=== PATIENT | female | born 1950 | race Caucasian/White ===

== ENCOUNTER → 2018-04-26 | Outpatient (CLI) | payer MEDICARE, OTHER ==
--- NOTE | 2018-04-26 12:12 | Diagnostic Imaging Report ---
PROCEDURE:MODIFIED BA. SWALLOW INDICATION:Dysphasia; reflux COMPARISON:None. TECHNIQUE:Modified barium swallow was performed in conjunction with speech pathology. A variety of barium and barium coated food items were administered. Fluoroscopy time: 2.1 minutes; Cummulative air kerma: 14.75 mGy. FINDINGS: No evidence of penetration or aspiration. Mild vallecular and base of tongue residue. CONCLUSION: No evidence of penetration or aspiration. Dictated by: Mitchell Lebron M.D. on 04/26/2018 at 12:15 Electronically approved by: Mitchell Lebron M.D. on 04/26/2018 at 12:15
== END ==
LOC: DX 09:55
PROVIDERS: ATTEND Otolaryngology Otolaryngology/Facial Plastic Surgery
DX: K21.9 Gastro-esophageal reflux disease without esophagitis (principal)
CPT/HCPCS: 74230; 92611; G8996; G8997; G8998

== ENCOUNTER → 2019-05-06 | Day surgery (SDC) | payer MEDICARE, OTHER ==
[2019-05-05 15:31] LABS: BASOPHILS # (AUTO) 0.1 (0.0-0.1); BASOPHILS % 0.7 % (0.0-1.0); EOSINOPHILS # (AUTO) 0.2 (0.0-0.4); EOSINOPHILS % 1.5 % (0.0-6.0); HEMATOCRIT 38.3 % (34.2-44.1); HEMOGLOBIN 13.1 g/dL (12.0-16.0); LYMPHOCYTES # (AUTO) 1.6 (1.0-3.2); LYMPHOCYTES % 13.1 % (18.0-39.1); MEAN CORPUSCULAR HEMOGLOBIN 30.4 pg (28-32); MEAN CORPUSCULAR HGB CONC 34.2 g/dL (31-35); MEAN CORPUSCULAR VOLUME 88.9 fL (81-99); MONOCYTES # (AUTO) 0.6 (0.2-0.8); MONOCYTES % 5.2 % (4.4-11.3); NEUTROPHILS # (AUTO) 9.6 (2.1-6.9); NEUTROPHILS % 78.5 % (38.7-80.0); PLATELET COUNT 252 x10e3/uL (140-360); RED BLOOD COUNT 4.31 x10e6/uL (3.6-5.1); RED CELL DISTRIBUTION WIDTH 14.5 % (11.7-14.4)
[2019-05-05 15:41] LABS: INR 0.93
[2019-05-05 15:48] LABS: ALANINE AMINOTRANSFERASE 24 IU/L (0-55); ALBUMIN 3.3 g/dL (3.5-5.0); ALKALINE PHOSPHATASE 111 IU/L (40-150); ANION GAP 14.5 mmol/L (8-16); BLOOD UREA NITROGEN 13 mg/dL (7-26); BUN/CREATININE RATIO 16 (6-25); CALCIUM 10.8 mg/dL (8.4-10.2); CARBON DIOXIDE 19 mmol/L (22-29); CHLORIDE 106 mmol/L (98-107); EST GLOMERULAR FILTRATION RATE > 60 ML/MIN (60-); GLUCOSE 336 mg/dL (74-118); POTASSIUM 3.5 mmol/L (3.5-5.1); SODIUM 136 mmol/L (136-145)
--- NOTE | 2019-05-05 16:50 | Diagnostic Imaging Report ---
EXAM: CHEST 2 VIEWS, PA and lateral DATE: 05/05/2019 Time stamp on exam: 1531 hours INDICATION: Preop renal stone COMPARISON: None FINDINGS: LINES/TUBES: None LUNGS: No consolidations or edema. PLEURA: No effusions or pneumothorax. HEART AND MEDIASTINUM: Normal size and contour. Prominent epicardial fat pads. BONES AND SOFT TISSUES: No acute findings. Degenerative changes of the spine. IMPRESSION: No acute thoracic abnormality. Signed by: Dr. Rios Hess DO on 05/05/2019 4:46 PM
--- NOTE | 2019-05-05 16:59 | Diagnostic Imaging Report ---
EXAM: ABDOMEN-1VIEW ([facility]) DATE: 05/05/2019 2:55 PM INDICATION: Kidney stone ^MD ORDER ^[id number] ^1530 ^PRE ADMIT COMPARISON: None FINDINGS: 3 supine views of the abdomen show normal distribution of air in the small and large bowel. There is a 4 mm calcification projected on the lower pole of the left kidney. No calcifications are projected on the right kidney or either ureter, although small calcifications might be obscured by overlying bowel or bone. Apparent vascular calcifications are seen in the pelvis. No acute bony abnormality. Mild lumbar levoscoliosis. IMPRESSION: 1. A 4 mm calcification is projected on the lower pole left kidney, likely representing an intrarenal calculus. 2. No bowel dilatation or evidence for obstruction. Signed by: Dr. Giorgio Zapata M.D. on 05/05/2019 4:56 PM
[~2019-05-06] MED LIST: ACETAMINOPHEN 1000 MG/100 ML 100 ML IV ONE; ACETAZOLAMIDE250 MG PO; BRIMONIDINE TART5 ML OP; CEFOXITIN 1GM/ D5W 50ML 50 ML IV ONE; DEXAMETHASONE SOD PHOS INJ 4 MG/ML VIAL ONE; DORZOLAMIDE OP; FENTANYL CITRATE/PF 100MCG/2 ML INJ ONE; INSULIN REGULAR, HUMAN 100 UNIT/1 ML 3ML VIAL ONE; IOPAMIDOL 610MG/1ML 300 MG/ML VIAL IV ONE; LIDOCAINE HCL 2% LOCAL INJ 5 ML SDV VIAL INJ ONE; LISINOPRIL10 MG PO; LUMIGAN2.5 M1 OP; MACROBID 100 M100 MG PO; METFORMIN HCL500 MG PO; MIDAZOLAM HCL 2 MG/2 ML VIAL ONE; MYCOPHENOLATE250 MG PO; NEXIUM20 MG PO; ONDANSETRON HCL INJ 2MG/ML 2ML 2 MG/ML VIAL ONE; PREDNISONE5 MG PO; PROPOFOL IV EMULSION 10 MG/ML 20 ML VIAL ONE; SEVOFLURANE INHAL SOLN 250 ML PEN BTL ONE; VIT D PO; ZOFRAN4 MG PO
--- OUTSIDE RECORDS SUMMARY | 2019-05-06 11:07 | XMS REPORT ---
Author Author [facility] Address Unknown Phone Unavailable Care Team Providers Care Board Worker Name Role Phone GEORGE PEREYRA Unavailable Unavailable Chelsey ESPINOZA Unavailable Unavailable Problems This patient has no known problems. Allergies, Adverse Reactions, Alerts This patient has no known allergies or adverse reactions. Medications This patient has no known medications. Results Test Description Test Time Test Comments Text Results Atomic Results Result Comments ABDOMEN-1VIEW ([facility]) 2019-05-05 16:53:00 [place] [address] Patient Name: OTIS HERNADEZ MR #: [id number] : 1950 Age/Sex: 68/F Req #: [id number] Adm Physician: Ordered by: GEORGE PEREYRA MD Report #: [id number] Location: OR Room/Bed: Procedure: [id number] DX/ABDOMEN-1VIEW ([facility]) Exam Date: 05/05/19 Exam Time: 1530 REPORT STATUS: Signed EXAM: ABDOMEN-1VIEW ([facility]) DATE: 05/05/2019 2:55 PM INDICATION: Kidney stone ORDER [id number] 1530 PRE ADMIT COMPARISON: None FINDINGS: 3 supine views of the abdomen show normal distribution of air in the small and large bowel. There is a 4 mm calcification projected on the lower pole of the left kidney. No calcifications are projected on the right kidney or either ureter, although small calcifications might be obscured by overlying bowel or bone. Apparent vascular calcifications are seen in the pelvis. No acute bony abnormality. Mild lumbar levoscoliosis. IMPRESSION: 1. A 4 mm calcification is projected on the lower pole left kidney, likely representing an intrarenal calculus. 2. No bowel dilatation or evidence for obstruction. Signed by: Dr. Binu Mac M.D. on 05/05/2019 4:56 PM Dictated By: BINU MAC MD 55 Transcribed By: DONNELL on 05/05/191655 COPY TO: GEORGE PEREYRA MD CHEST 2 VIEWS 2019-05-05 16:45:00 [place] [address] Patient Name: OTIS HERNADEZ MR #: [id number] : 1950 Age/Sex: 68/F Req #: [id number] Adm Physician: Ordered by: GEORGE PEREYRA MD Report #: [id number] Location: OR Room/Bed: Procedure: [id number] DX/CHEST 2 VIEWS Exam Date: Exam Time: REPORT STATUS: Signed EXAM: CHEST 2 VIEWS, PA and lateral DATE: 05/05/2019 Time stamp on exam: 1531 hours INDICATION: Preop renal stone COMPARISON: None FINDINGS: LINES/TUBES: None LUNGS: No consolidations or edema. PLEURA: No effusions or pneumothorax. HEART AND MEDIASTINUM: Normal size and contour. Prominent epicardial fat pads. BONES AND SOFT TISSUES: No acute findings. Degenerative changes of the spine. IMPRESSION: No acute thoracic abnormality. Signed by: Dr. Denise Hess DO on 05/05/2019 4:46 PM Dictated By: DENISE HESS DO 45 Transcribed By: DONNELL on 05/05/191645 COPY TO: GEORGE PEREYRA MD BA. SWALLOW [place] [address] Patient Name: OTIS HERNADEZ MR #: [id number] : 1950 Age/Sex: 67/F Req #: [id number] Adm Physician: Ordered by: GRACIE ESPINOZA MD Report #: [id number] Location: DX Room/Bed: Procedure: [id number] DX/CAROL BA. SWALLOW Exam Date: 04/26/18 Exam Time: 1100 REPORT STATUS: Signed PROCEDURE: MODIFIED BA. SWALLOW INDICATION: Dysphasia; reflux COMPARISON: None. TECHNIQUE: Modified barium swallow was performed in conjunction with speech pathology. A variety of barium and barium coated food items were administered. Fluoroscopy time: 2.1 minutes; Cummulative air kerma: 14.75 mGy. FINDINGS: No evidence of penetration or aspiration. Mild vallecular and base of tongue residue. CONCLUSION: No evidence of penetration or aspiration. Dictated by: Zach Lebron M.D. on 04/26/2018 at 12:15 Electronically approved by: Zach Lebron M.D. on 04/26/2018 at 12:15 Dictated By: ZACH LEBRON MD 1215 Transcribed By: EDI on 04/26/18 1215 COPY TO: GRACIE ESPINOZA MD
--- OUTSIDE RECORDS SUMMARY | 2019-05-06 11:07 | XMS REPORT | Clinical Summary ---
Author Author [facility] Organization [facility] Address Unknown Phone Unavailable Care Team Providers Care Lockstitch Cup Setter Name Role Phone Marco Antonio Jesus MD PCP Allergies Comments Active Allergy Reactions Severity Noted Date Clindamycin 09/24/2017 Codeine 09/24/2017 Methylprednisolone GI 05/12/2018 Intolerance Naproxen 09/24/2017 Medications End Date Status Medication Sig Dispensed Refills Start Date Active metFORMIN (GLUCOPHAGE) 1 BID 1 500 mg tablet 7 Active lisinopril TK 1 T PO D 1 (PRINIVIL,ZESTRIL) 20 mg 7 tablet Active LUMIGAN 0.01 % ophthalmic 0 drops 7 Active cholecalciferol, vitamin Take 1,000 0 D3, (VITAMIN D3) 1,000 Units by unit tablet mouth daily. Active biotin 1 mg tablet Take 1,000 0 mcg by mouth daily. Active ALPRAZolam (XANAX) 0.25 1 tablet as 1 MG tablet needed. 8 Active cyanocobalamin 1,000 1,000 mcg 0 mcg/mL injection once a week. 8 Active ibuprofen (ADVIL,MOTRIN) Take 800 mg 0 800 MG tablet by mouth as needed for mild pain. Active topiramate (TOPAMAX) 25 Take 1 by 60 tablet 3 MG tablet mouth daily 8 at bedtime for 1 week and then 2 by mouth daily at bedtime thereafter Active multivitamin (THERAGRAN) Take 1 tablet 0 tablet by mouth daily. Active divalproex (DEPAKOTE ER) Take 1 tablet 60 tablet 4 500 MG 24 hr by mouth 8 tabletIndications: daily at Chronic intractable bedtime for 1 headache, unspecified week and then headache type 2 tablets by mouth daily at bedtime thereafter Active esomeprazole (NexIUM) 40 Take 40 mg by 0 MG capsule mouth daily before breakfast. Active predniSONE (DELTASONE) 5 Take 7 mg by 0 mg tablet mouth daily. Active brimonidine-timolol Administer 1 0 (COMBIGAN) 0.2-0.5 % drop to both ophthalmic solution eyes every 12 (twelve) hours. Active brinzolamide (AZOPT) 1 % 1 drop 3 0 ophthalmic suspension (three) times a day. 08/11/2018 Discontinued magnesium oxide (MAG-OX) Take 400 mg 0 400 mg tablet by mouth daily. 08/11/2018 Discontinued prednisoLONE acetate 1 drop 2 0 (PRED FORTE) 1 % (two) times a 8 ophthalmic suspension day. 08/11/2018 Discontinued indomethacin (INDOCIN) 50 Take 1 by 90 capsule 0 MG capsuleIndications: mouth twice 8 Hemicrania continua daily with food for 3 days. If no improvement in headache, increase to one tablet 3 times daily thereafter with food 06/23/2018 LORAZepam (ATIVAN) 1 MG Take 1 tablet 2 tablet 0 tabletIndications: 30-45 minutes 8 Claustrophobia before MRI for claustrophobi a. If needed, repeat 1 05/29/2018 methylPREDNISolone Take as 21 tablet 0 (MEDROL, TAMIR,) 4 mg directed on 8 tablet package with food 05/03/2019 traMADol (ULTRAM) 50 mg Take 1 tablet 9 tablet 0 tablet (50 mg total) 9 by mouth every 8 (eight) hours as needed for moderate pain for up to 3 days. 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 05/12/2018 Cervicalgia 05/12/2018 Stress and adjustment reaction 05/12/2018 Claustrophobia 05/12/2018 Closed fracture of proximal end of right humerus 10/01/2017 Encounters Care Team Description Date Type Specialty Marco Antonio Jesus MD Bilateral calf pain (Primary Dx) 05/05/2019 Transcribe Access Orders Abdoulaye Steel DO Left ureteral stone (Primary Dx) 04/30/2019 Emergency Emergency Medicine Dawit Ham MD Elevated C-reactive protein (CRP) 02/01/2019 Hospital Radiology Encounter Joe Singh MD Fall, initial encounter (Primary Dx); Sprain of left wrist, initial encounter; Contusion of knee, unspecified laterality, initial encounter; Abrasion of face, initial encounter; Injury of head, initial encounter 02/01/2019 Emergency Emergency Medicine Dawit Ham MD Elevated C-reactive protein (CRP) (Primary Dx); Bilateral posterior uveitis 02/01/2019 Transcribe Access Orders Ari Hassan MD Occipital neuralgia, unspecified laterality; Migraine with aura, with intractable migraine, so stated, with status migrainosus 01/28/2019 Hospital Radiology Encounter Ari Hassan MD Occipital neuralgia, unspecified laterality (Primary Dx); Migraine with aura, with intractable migraine, so stated, with status migrainosus 01/25/2019 Transcribe Access Orders Krysta Cha MD 09/14/2018 Telephone Neurology Krysta Cha MD 09/13/2018 Telephone Neurology Krysta Cha MD 09/13/2018 Refill Neurology Rosa Norman MD Bilateral posterior uveitis 09/09/2018 Hospital Radiology Encounter Kirti Wasserman MD Unspecified menopausal and perimenopausal disorder 09/09/2018 Hospital Radiology Encounter Kirti Wasserman MD Screening breast examination 09/09/2018 Hospital Radiology Encounter Rosa Norman MD Bilateral posterior uveitis (Primary Dx) 09/09/2018 Transcribe Access Orders Nathaly Mishra MA 08/12/2018 Telephone Neurology Krysta Cha MD Chronic intractable headache, unspecified headache type (Primary Dx); Nephrolithiasis; Cervicalgia; TMJ syndrome 08/11/2018 Office Visit Neurology Kirti Wasserman MD Unspecified menopausal and perimenopausal disorder (Primary Dx) 08/02/2018 Transcribe Access Kirti Chowdhury MD 07/30/2018 Transcribe Access Orders Kirti Wasserman MD Screening breast examination (Primary Dx) 07/30/2018 Transcribe Access Orders Krysta Cha MD 06/09/2018 Telephone Neurology Krysta Cha MD Hemicrania continujoellen 06/09/2018 Refill Neurology Nathaly Mishra MA 06/04/2018 Telephone Neurology Krysta Cha MD 05/24/2018 Telephone Neurology Krysta Cha MD Hemicrania pedro 05/20/2018 Hospital Radiology Encounter Krysta Cha MD 05/20/2018 Telephone Neurology Jatin Lorenzo MD Throat discomfort 05/17/2018 Hospital Radiology Encounter Krysta Cha MD Hemicrania continua (Primary Dx); TMJ syndrome; Cervicalgia; Stress and adjustment reaction; Claustrophobia 05/12/2018 Office Visit Neurology Jatin Lorenzo MD Throat discomfort (Primary Dx) 05/05/2018 Transcribe Access Orders after 05/05/2018 Family History Medical History Relation Name Comments Diabetes Father Leamon amputation of legs & blind [place] Migraines Father Leamon [place] Diabetes Mother Sylvia legally blind [place] Relation Name Status Comments Father Leamon [place] (Age 71) Mother Sylvia [place]don[place] (Age 70) Social History Date Tobacco Use Types Packs/Day Years Used Never Smoker Smokeless Tobacco: Never Used Alcohol Use Drinks/Week oz/Week Comments No Sex Assigned at Date Recorded Not on file Industry Job Start Date Occupation Not on file Not on file Not on file Travel End Travel History Travel Start No recent travel history available. Last Filed Vital Signs Time Taken Vital Sign Reading 04/30/2019 11:00 PM CDT Blood Pressure 134/64 04/30/2019 11:00 PM CDT Pulse 73 04/30/2019 11:40 PM CDT Temperature 36.6 C (97.9 F) 04/30/2019 11:00 PM CDT Respiratory Rate 18 04/30/2019 11:00 PM CDT Oxygen Saturation 94% - Inhaled Oxygen - Concentration 04/30/2019 8:53 PM CDT Weight 99.8 kg (220 lb) 04/30/2019 8:53 PM CDT Height 162.6 cm (5' 4") 04/30/2019 8:53 PM CDT Body Mass Index 37.76 Plan of Treatment Health Maintenance Due Date Last Done Comments COLONOSCOPY SCREENING 2002 SHINGLES VACCINES (#1) 2002 65+ PNEUMOCOCCAL VACCINE 2017 (1 of 2 - PCV13) INFLUENZA VACCINE 06/23/2019 BREAST CANCER SCREENING 09/09/2020 09/09/2018, 09/09/2017, 08/05/2016, Additional history exists Procedures Comments Procedure Name Priority Date/Time Associated Diagnosis US DUPLEX VENOUS LOWER Routine 05/05/2019 Bilateral calf pain EXTREMITY RIGHT 1:[address] ABDOMEN PELVIS W STAT 04/30/2019 CONTRAST 10:36 PM CDT GRAM STAIN STAT 04/30/2019 9:53 PM CDT URINE CULTURE STAT 04/30/2019 9:53 PM CDT ESTIMATED GFR STAT 04/30/2019 9:15 PM CDT BASIC METABOLIC PANEL STAT 04/30/2019 9:15 PM CDT HC COMPLETE BLD COUNT STAT 04/30/2019 W/AUTO DIFF 9:15 PM CDT URINALYSIS SCREEN AND STAT 04/30/2019 MICROSCOPY, WITH REFLEX 9:15 PM CDT TO CULTURE XR HANDS 3 VW BILATERAL Routine 02/01/2019 Elevated C-reactive 4:24 PM CDT protein (CRP) XR WRIST 3+ VW LEFT STAT 02/01/2019 4:19 PM CDT XR HUMERUS RIGHT STAT 02/01/2019 4:[address] MAXILLOFACIAL WO STAT 02/01/2019 CONTRAST 3:[address] HEAD WO CONTRAST STAT 02/01/2019 3:49 PM CDT SPLINT APPLICATION Routine 02/01/2019 2:39 PM CDT MRI BRAIN W WO CONTRAST Routine 01/28/2019 Occipital neuralgia, 10:56 AM MAXILLOFACIAL PROSTHETICS DENTIST unspecified laterality Migraine with aura, with intractable migraine, so stated, with status migrainosus ESTIMATED GFR Routine 01/28/2019 9:25 AM MAXILLOFACIAL PROSTHETICS DENTIST POC CREATININE Routine 01/28/2019 9:25 AM MAXILLOFACIAL PROSTHETICS DENTIST XR CHEST 2 VW Routine 09/09/2018 Bilateral posterior 12:59 PM CDT uveitis MAMMO BREAST SCREEN Routine 09/09/2018 Screening breast TOMOSYNTHESIS BILATERAL 11:52 AM CDT examination BONE DENSITY Routine 09/09/2018 Unspecified menopausal 11:15 AM CDT and perimenopausal disorder HEPATIC FUNCTION PANEL Routine 08/11/2018 Chronic intractable 2:18 PM CDT headache, unspecified headache type CBC WITH PLATELET AND Routine 08/11/2018 Chronic intractable DIFFERENTIAL 2:18 PM CDT headache, unspecified headache type MRI BRAIN WO CONTRAST Routine 05/20/2018 Hemicrania continua 2:47 PM CDT FL ESOPHAGRAM COMPLETE Routine 05/17/2018 Throat discomfort 8:39 AM CDT after 05/05/2018 Results * Us duplex venous lower extremity (05/05/2019 1:09 PM CDT) Specimen Narrative Performed At EXAMINATION:US DUPLEX VENOUS LOWER EXTREMITY RIGHT [facility] CLINICAL HISTORY:M79.661 Pain in right lower leg, M79.662 Pain in left lower leg, RAJANI CALF PAIN COMPARISON:February 07, 2015. TECHNIQUE:Grayscale, color Doppler, and spectral waveform analysis of the right lower extremity deep venous system was performed. The common femoral, superficial femoral, proximal deep femoral, greater saphenous, and popliteal veins were evaluated. The calf veins were also evaluated. FINDINGS: RIGHT LOWER EXTREMITY Common Femoral Vein: No evidence of deep venous thrombosis. There is good compressibility and response to augmentation. Profunda Femoral Vein: No evidence of deep venous thrombosis. There is good compressibility and response to augmentation. Greater Saphenous Vein: No evidence of deep venous thrombosis. There is good compressibility and response to augmentation. Superficial Femoral Vein: No evidence of deep venous thrombosis. There is good compressibility and response to augmentation. Popliteal Vein: No evidence of deep venous thrombosis. There is good compressibility and response to augmentation. Calf Veins: The calf veins are patent. Encinas's Cyst: No Encinas's Cyst. Other findings: None Left Common Femoral Vein: No evidence of deep venous thrombosis. There is good compressibility and response to augmentation. IMPRESSION: 1.No right lower extremity deep venous thrombosis. [id number] Procedure Note Interface, Radiology Results Incoming - 05/05/2019 1:15 PM CDT EXAMINATION: US DUPLEX VENOUS LOWER EXTREMITY RIGHT CLINICAL HISTORY: M79.661 Pain in right lower leg, M79.662 Pain in left lower leg, RAJANI CALF PAIN COMPARISON: February 07, 2015. TECHNIQUE: Grayscale, color Doppler, and spectral waveform analysis of the right lower extremity deep venous system was performed. The common femoral, superficial femoral, proximal deep femoral, greater saphenous, and popliteal veins were evaluated. The calf veins were also evaluated. FINDINGS: RIGHT LOWER EXTREMITY Common Femoral Vein: No evidence of deep venous thrombosis. There is good compressibility and response to augmentation. Profunda Femoral Vein: No evidence of deep venous thrombosis. There is good compressibility and response to augmentation. Greater Saphenous Vein: No evidence of deep venous thrombosis. There is good compressibility and response to augmentation. Superficial Femoral Vein: No evidence of deep venous thrombosis. There is good compressibility and response to augmentation. Popliteal Vein: No evidence of deep venous thrombosis. There is good compressibility and response to augmentation. Calf Veins: The calf veins are patent. Encinas's Cyst: No Encinas's Cyst. Other findings: None Left Common Femoral Vein: No evidence of deep venous thrombosis. There is good compressibility and response to augmentation. IMPRESSION: 1. No right lower extremity deep venous thrombosis. [id number] Performing Organization Address City/State/Zipcode Phone Number [facility] [address] [place] [address] * CT Abdomen Pelvis W Contrast (04/30/2019 10:36 PM CDT) Specimen Narrative Performed At [facility] INDICATION:left flank paindysuria TECHNIQUE: Multidetector CT of the abdomen and pelvis was performed following intravenous administration of iodinated contrast with multiplanar reformats. CT scans are performed using radiation dose reduction techniques (iterative reconstruction and/or automated exposure control). Technical factors are evaluated and adjusted to ensure appropriate moderation of exposure. Automated dose management technology is applied to adjust radiation exposure while achieving a diagnostic quality image. COMPARISON:CT 07/07/2016. FINDINGS: Lung bases:Dependent subsegmental atelectasis/scarring. Liver:Diffusely decreased attenuation due to fatty infiltration. Gallbladder and biliary:Gallbladder is nonvisualized. Common bile duct is not dilated. Pancreas:Moderately atrophic with fatty replacement. Spleen: Few punctate granulomatous calcifications. Gastrointestinal: Mild sigmoid diverticulosis. Large and small bowel are normal in caliber. Appendix is not visualized. No focal inflammatory changes within the right lower quadrant of the abdomen. Adrenals:Normal. Kidneys and ureters:Presence of a 4 x 4 mm calculus at the left ureterovesical junction. Mild left hydroureteronephrosis. Mild left perinephric stranding. A 4 mm calculus is seen at the inferior pole of the left kidney. 2 mm calculus at the inferior pole the right kidney. Urinary bladder:Left UVJ calculus as above. Lymph nodes:No enlarged lymph nodes in the abdomen or pelvis. Peritoneum:No ascites or free air. Vascular:Mild atherosclerotic changes of the abdominal aorta and major branch vessels. Reproductive organs:Uterus is absent. Unremarkable adnexae. Abdominal wall: Diastasis of rectus abdominis muscles. Broad-based protrusion of abdominal contents at the anterior abdominal wall. Bones:Mild degenerative changes. IMPRESSION: 1. Presence of a 4 x 4 mm calculus at the left ureterovesical junction. Mild left hydroureteronephrosis. A few other bilateral renal calculi are noted. 2. Hepatic steatosis. 3. Mild sigmoid diverticulosis without diverticulitis. [facility]-[id number] Procedure Note [facility], Radiology Results Incoming - 04/30/2019 10:[address] ABDOMEN PELVIS W CONTRAST CLINICAL INDICATION: left flank pain dysuria TECHNIQUE: Multidetector CT of the abdomen and pelvis was performed following intravenous administration of iodinated contrast with multiplanar reformats. CT scans are performed using radiation dose reduction techniques (iterative reconstruction and/or automated exposure control). Technical factors are evaluated and adjusted to ensure appropriate moderation of exposure. Automated dose management technology is applied to adjust radiation exposure while achieving a diagnostic quality image. COMPARISON: CT 07/07/2016. FINDINGS: Lung bases: Dependent subsegmental atelectasis/scarring. Liver: Diffusely decreased attenuation due to fatty infiltration. Gallbladder and biliary: Gallbladder is nonvisualized. Common bile duct is not dilated. Pancreas: Moderately atrophic with fatty replacement. Spleen: Few punctate granulomatous calcifications. Gastrointestinal: Mild sigmoid diverticulosis. Large and small bowel are normal in caliber. Appendix is not visualized. No focal inflammatory changes within the right lower quadrant of the abdomen. Adrenals: Normal. Kidneys and ureters: Presence of a 4 x 4 mm calculus at the left ureterovesical junction. Mild left hydroureteronephrosis. Mild left perinephric stranding. A 4 mm calculus is seen at the inferior pole of the left kidney. 2 mm calculus at the inferior pole the right kidney. Urinary bladder: Left UVJ calculus as above. Lymph nodes: No enlarged lymph nodes in the abdomen or pelvis. Peritoneum: No ascites or free air. Vascular: Mild atherosclerotic changes of the abdominal aorta and major branch vessels. Reproductive organs: Uterus is absent. Unremarkable adnexae. Abdominal wall: Diastasis of rectus abdominis muscles. Broad-based protrusion of abdominal contents at the anterior abdominal wall. Bones: Mild degenerative changes. IMPRESSION: 1. Presence of a 4 x 4 mm calculus at the left ureterovesical junction. Mild left hydroureteronephrosis. A few other bilateral renal calculi are noted. 2. Hepatic steatosis. 3. Mild sigmoid diverticulosis without diverticulitis. [facility]-[id number] Performing Organization Address [facility] [place] [address] * Gram stain (04/30/2019 9:53 PM CDT) Gram stain No WBC's or organisms seen. [facility] result Comment: CATHOLIC Specimen Information HOSPITAL Specimen Source: Urine Specimen Site: Clean catch Specimen Urine Performing Organization Address [facility] Hospital[facility] Phone Number [facility] DEPARTMENT OF [address] [place] [address] PATHOLOGY AND [facility] [place] [address] HOSPITAL * Urine culture (04/30/2019 9:53 PM CDT) Urine culture No growth after 24 hours [facility] isolate Comment: CATHOLIC Specimen Information HOSPITAL Specimen Source: Urine Specimen Site: Clean catch Specimen Urine Performing Organization Address [facility] Hospital[facility] Phone Number [facility] [place] [address] PATHOLOGY AND [facility] [place] [address] HOSPITAL * Urinalysis screen and microscopy, with reflex to culture (04/30/2019 9:15 PM CDT) Specimen site Clean catch [facility] Color, UA Straw [facility] Appearance, UA Slightly-Cloudy [facility] Specific 1.008 1.001 - 1.035 [facility] gravity, UA [facility] pH, UA 8.0 5.0 - 8.5 [facility] Protein, UA Negative Negative [facility] Glucose, UA 3+ (A) Negative [facility] Ketones, UA Negative Negative [facility] Bilirubin, UA Negative Negative [facility] Blood, UA Small (A) Negative [facility] Nitrite, UA Negative Negative [facility] Urobilinogen, Negative <2.0 [facility] Leukocyte Trace (A) Negative [facility] esterase, UA [facility] Epithelial Many Few /HPF [facility] cells, [facility] WBC, UA 6-10 (H) 0 - 4 /HPF [facility] RBC, UA 0-5 0 - 5 /HPF [facility] Bacteria, UA Few None seen [facility] Yeast, UA None seen [facility] Yeast with None seen [facility] pseudohyphae, [facility] Amorphous Few [facility] crystals [facility] Specimen Urine Performing Organization Address City/State/Zipcode [place] [address] [place] [address] PATHOLOGY AND GENOMIC MEDICINE [facility] [address] [place] [address] [facility] * Estimated GFR (04/30/2019 9:15 PM CDT) Only the most recent of 2 results within the time period is included. Pathologist [facility] Estimated GFR 77 mL/min/1.73 m2 [facility] Comment: [facility] r[facility]ation G1 >=90 Normal or high G2 60-89Mildly decreased [id number] Mildly to moderately decreased [id number] Moderately to severely decreased G4 15-29Severely decreased G5 <15Kidney failure The eGFR was calculated using the Chronic Kidney Disease Epidemiology Collaboration (CKD-EPI) equation. Interpretation is based on recommendations of the National Kidney Foundation-Kidney Disease Outcomes Quality Initiative (NKF-KDOQI) published in 2014. Specimen Plasma specimen Performing Organization Address City/State/Zipcode Phone Number [facility] [place] [address] [place] [id number] PATHOLOGY AND GENOMIC MEDICINE [facility] [id number] [place] [address] * CBC with platelet and differential (04/30/2019 9:15 PM CDT) Only the most recent of 2 results within the time period is included. WBC 10.24 4.50 - 11.00 k/uL [facility] RBC 4.55 4.20 - 5.50 m/uL [facility] HGB 13.5 12.0 - 16.0 g/dL [facility] HCT 41.9 37.0 - 47.0 % [facility] MCV 92.1 82.0 - 100.0 fL [facility] MCH 29.7 27.0 - 34.0 pg [facility] MCHC 32.2 31.0 - 37.0 g/dL [facility] RDW - SD 47.9 37.0 - 55.0 fL [facility] MPV 9.7 8.8 - 13.2 fL [facility] Platelet count 294 150 - 400 k/uL [facility] Nucleated RBC 0.00 /100 WBC [facility] Neutrophils 70.0 (H) 39.0 - 69.0 % [facility] Lymphocytes 21.8 (L) 25.0 - 45.0 % [facility] Monocytes 5.7 0.0 - 10.0 % [facility] Eosinophils 1.2 0.0 - 5.0 % [facility] Basophils 0.7 0.0 - 1.0 % [facility] Specimen Blood Performing Organization Address City/State/Zipcode Phone [place] [address] [place] [address] PATHOLOGY AND GENOMIC MEDICINE [facility] [id number] [place] [address] * Basic metabolic panel (04/30/2019 9:15 PM CDT) Sodium 138 135 - 148 mEq/L [facility] Potassium 3.9 3.5 - 5.0 mEq/L [facility] Chloride 105 98 - 112 mEq/L [facility] CO2 19 (L) 24 - 31 mEq/L [facility] Anion gap 14@ANIO 7 - 15 mEq/L [facility] BUN 17 8 - 23 mg/dL [facility] Creatinine 0.80 0.50 - 0.90 mg/dL [facility] Glucose 359 (H) 65 - 99 mg/dL [facility] Calcium 11.0 (H) 8.8 - 10.2 mg/dL [facility] Specimen Plasma specimen Performing Organization Address City/State/Zipcode [place] [address] [place] [address] PATHOLOGY AND GENOMIC MEDICINE [facility] [address] [place] [address] [facility] * XR Hands 3 Vw Bilateral (02/01/2019 4:24 PM CDT) Specimen Narrative Performed At Procedure:XR HANDS 3 VW BILATERAL [facility] REFERRING PHYSICIAN: DAWIT HAM HISTORY: Status post tripping,R79.82 Elevated C-reactive protein (CRP), r79.82 COMPARISON: None FINDINGS: No evidence of fracture or dislocation is seen. The joint spaces are maintained. An approximately 3 mm nonaggressive lytic lesion is seen within the mid aspect of the left capitate, probably representing intraosseous cysts. No osteolytic or osteoblastic lesion is identify. Regional soft tissue is unremarkable. No radiopaque foreign body is seen. XR HANDS 3 VW BILATERALacquired. IMPRESSION: No radiographic evidence of acute fracture or dislocation of either of the hands. No radiographic evidence of rheumatoid arthritis changes of either of the hands.. [id number] Procedure Note Hm Interface, Radiology Results Incoming - 02/01/2019 4:33 PM CDT Procedure:XR HANDS 3 VW BILATERAL REFERRING PHYSICIAN: DAWIT HAM HISTORY: Status post tripping, R79.82 Elevated C-reactive protein (CRP), r79.82 COMPARISON: None FINDINGS: No evidence of fracture or dislocation is seen. The joint spaces are maintained. An approximately 3 mm nonaggressive lytic lesion is seen within the mid aspect of the left capitate, probably representing intraosseous cysts. No osteolytic or osteoblastic lesion is identify. Regional soft tissue is unremarkable. No radiopaque foreign body is seen. XR HANDS 3 VW BILATERAL acquired. IMPRESSION: No radiographic evidence of acute fracture or dislocation of either of the hands. No radiographic evidence of rheumatoid arthritis changes of either of the hands.. [id number] Performing Organization Address [facility]/Zipcode Phone Number [facility] [address] [place] [address] * XR Wrist 3+ Vw Left (02/01/2019 4:19 PM CDT) Specimen Narrative Performed At Procedure:XR WRIST 4VW LEFT [facility] REFERRING PHYSICIAN: BRIANNA FRIEND HISTORY:r o fracture COMPARISON: None FINDINGS: No evidence of fracture or dislocation is seen. The joint spaces are maintained. An approximately 3.4 mm nonaggressive lytic lesion is noted within the capitate, probably representing intraosseous cyst. No osteolytic or osteoblastic lesion is identify. Regional soft tissue is unremarkable. No radiopaque foreign body is seen. XR WRIST 4VW LEFTacquired. IMPRESSION: No radiographic evidence of acute fracture or dislocation of the left wrist. [id number] Procedure Note Hm Interface, Radiology Results Incoming - 02/01/2019 4:30 PM CDT Procedure:XR WRIST 4 VW LEFT REFERRING PHYSICIAN: BRIANNA FRIEND HISTORY: r o fracture COMPARISON: None FINDINGS: No evidence of fracture or dislocation is seen. The joint spaces are maintained. An approximately 3.4 mm nonaggressive lytic lesion is noted within the capitate, probably representing intraosseous cyst. No osteolytic or osteoblastic lesion is identify. Regional soft tissue is unremarkable. No radiopaque foreign body is seen. XR WRIST 4 VW LEFT acquired. IMPRESSION: No radiographic evidence of acute fracture or dislocation of the left wrist. [id number] Performing Organization Address [facility]/Zipcode Phone Number [facility] [address] [place] [address] * XR Humerus Right (02/01/2019 4:18 PM CDT) Specimen Narrative Performed At EXAMINATION:XR HUMERUS RIGHT [facility] CLINICAL HISTORY:fallright arm pain COMPARISON:None. FINDINGS: Two-view examination of the right humerus performed No fracture or dislocation. Mild degenerative acromioclavicular changes IMPRESSION: Normal right humerus Mild degenerative AC change [id number] Procedure Note Interface, Radiology Results Incoming - 02/01/2019 4:26 PM CDT EXAMINATION: XR HUMERUS RIGHT CLINICAL HISTORY: fall right arm pain COMPARISON: None. FINDINGS: Two-view examination of the right humerus performed No fracture or dislocation. Mild degenerative acromioclavicular changes IMPRESSION: Normal right humerus Mild degenerative AC change [id number] Performing Organization Address [facility] Phone Number [facility] [address] [place] [address] * CT Maxillofacial Wo Contrast (02/01/2019 3:50 PM CDT) Specimen Narrative Performed At EXAMINATION:CT MAXILLOFACIAL WO CONTRAST [facility] CLINICAL HISTORY:traumafacial swelling Comparison: None. Technique: Routine CT of the maxillofacial bones was obtained. . CT imaging was performed with iterative reconstruction technique and/or automated exposure control to reduce radiation dose. Findings: No acute fracture of the maxillofacial bones. Dental implants. Paranasal sinuses are essentially clear. Bilateral lens surgery. Degenerative changes of the cervical spine. Impression: No acute maxillofacial fracture. [id number] Procedure Note Interface, Radiology Results Incoming - 02/01/2019 4:02 PM CDT EXAMINATION: CT MAXILLOFACIAL WO CONTRAST CLINICAL HISTORY: trauma facial swelling Comparison: None. Technique: Routine CT of the maxillofacial bones was obtained. . CT imaging was performed with iterative reconstruction technique and/or automated exposure control to reduce radiation dose. Findings: No acute fracture of the maxillofacial bones. Dental implants. Paranasal sinuses are essentially clear. Bilateral lens surgery. Degenerative changes of the cervical spine. Impression: No acute maxillofacial fracture. [id number] Performing Organization Address [facility] Phone Number [facility] [address] [place] [address] * CT Head Wo Contrast (02/01/2019 3:49 PM CDT) Specimen Narrative Performed At EXAMINATION: CT HEAD WO CONTRAST [facility] CLINICAL HISTORY: Headache COMPARISON:CT brain from November 19, 2007.The brain from January 28, 2019. TECHNIQUE: Noncontrast enhanced images of the brain were obtained from the skull base to the vertex. Both soft tissue and bone reconstruction algorithms were performed.CT scans are performed using radiation dose reduction techniques. Technical factors are evaluated and adjusted to ensure appropriate moderation of exposure. Automated dose management technology is applied to adjust radiation exposure while achieving a diagnostic quality image. FINDINGS: Artifacts obscure details. There is no definite evidence of acute intracranial hemorrhage or mass, hydrocephalus or midline shift, stroke or thrombus in the vessels. There is relatively stable mild nonspecific enlargement of the ventricles and extra axial space and minimal white matter changes. There is pseudophakia. There is nonspecific increased bone density. There is hyperostosis. IMPRESSION: No acute intracranial abnormality identified. [id number] Procedure Note Hm Interface, Radiology Results Incoming - 02/01/2019 3:58 PM CDT EXAMINATION: CT HEAD WO CONTRAST CLINICAL HISTORY: Headache COMPARISON: CT brain from November 19, 2007. The brain from January 28, 2019. TECHNIQUE: Noncontrast enhanced images of the brain were obtained from the skull base to the vertex. Both soft tissue and bone reconstruction algorithms were performed. CT scans are performed using radiation dose reduction techniques. Technical factors are evaluated and adjusted to ensure appropriate moderation of exposure. Automated dose management technology is applied to adjust radiation exposure while achieving a diagnostic quality image. FINDINGS: Artifacts obscure details. There is no definite evidence of acute intracranial hemorrhage or mass, hydrocephalus or midline shift, stroke or thrombus in the vessels. There is relatively stable mild nonspecific enlargement of the ventricles and extra axial space and minimal white matter changes. There is pseudophakia. There is nonspecific increased bone density. There is hyperostosis. IMPRESSION: No acute intracranial abnormality identified. [id number] Performing Organization Address City/State/Zipcode Phone Number [facility] [address] [place] [address] * Splint Application (02/01/2019 2:39 PM CDT) Narrative Performed At Brianna Friend NP-C 02/01/20194:35 PM Splint Application Performed by: Brianna Friend NP-C Authorized by: Brianna Friend NP-C Consent: Consent obtained:Verbal Consent given by:Patient Risks discussed:Discoloration, numbness, pain and swelling Alternatives discussed:No treatment Pre-procedure details: Sensation:Normal Skin color:[place] Procedure details: Laterality:Left Location:Wrist Wrist:L wrist Splint type:Wrist Supplies:Prefabricated splint Post-procedure details: Pain:Improved Sensation:Normal Skin color:[place] Patient tolerance of procedure:Tolerated well, no immediate complications * MRI Brain W Wo Contrast (01/28/2019 10:56 AM MAXILLOFACIAL PROSTHETICS DENTIST) Specimen Narrative Performed At [facility] EXAMINATION: MRI BRAIN W WO CONTRAST CLINICAL HISTORY: M54.81 Occipital neuralgia, G43.111 Migraine with auraintractablewith status migrainosus, occipital neuralgiamigraine COMPARISON:MRI brain from May 12, 20182017. CT brain from November 11, 20182006. TECHNIQUE: Multiplanar and multisequence MRI imaging of the brain was obtained with and without contrast. FINDINGS: There is no evidence of acute infarct, intracranial hemorrhage or mass, hydrocephalus or midline shift. There are mild nonspecific white matter changes on the FLAIR images. There are no areas of abnormal enhancement in the brain or extra-axial region. There is pseudophakia. There is minimal mucosal thickening in 3 inferior left mastoid air cells. IMPRESSION: No acute findings in the brain or extra-axial region. [id number] Procedure Note Interface, Radiology Results Incoming - 01/28/2019 11:07 AM MAXILLOFACIAL PROSTHETICS DENTIST EXAMINATION: MRI BRAIN W WO CONTRAST CLINICAL HISTORY: M54.81 Occipital neuralgia, G43.111 Migraine with aura intractable with status migrainosus, occipital neuralgia migraine COMPARISON: MRI brain from May 12, 20182017. CT brain from November 11, 20182006. TECHNIQUE: Multiplanar and multisequence MRI imaging of the brain was obtained with and without contrast. FINDINGS: There is no evidence of acute infarct, intracranial hemorrhage or mass, hydrocephalus or midline shift. There are mild nonspecific white matter changes on the FLAIR images. There are no areas of abnormal enhancement in the brain or extra-axial region. There is pseudophakia. There is minimal mucosal thickening in 3 inferior left mastoid air cells. IMPRESSION: No acute findings in the brain or extra-axial region. [facility]-[id number] Performing Organization Address City/State/Zipcode Phone Number [facility] [address] [place] [address] * POC creatinine (01/28/2019 9:25 AM MAXILLOFACIAL PROSTHETICS DENTIST) POC creatinine 0.5 0.5 - 0.9 mg/dl [facility] Specimen Blood Performing Organization Address City/State/Zipcode Phone Number [facility] [address] [place] [address] PATHOLOGY AND GENOMIC MEDICINE FOR[facility]LY [facility] [address] [place] [address] [facility] * XR Chest 2 Vw (09/09/2018 12:59 PM CDT) Specimen Narrative Performed At TWO VIEW CHEST, 09/09/2018 [facility] Clinical history:Bilateral posterior uveitis Technique: PA and lateral views chest. Comparison: CT of the abdomen July 07, 2016 DISCUSSION: The lungs are clear and symmetrically inflated. No pleural effusions. Enlarged cardiac silhouette with prominent pericardial fat pads. Pulmonary vasculature is normal.The skeleton is grossly intact. IMPRESSION: Mild cardiomegaly without acute abnormality. Procedure Note [facility], Radiology Results Incoming - 09/09/2018 1:15 PM CDT TWO VIEW CHEST, 09/09/2018 Clinical history: Bilateral posterior uveitis Technique: PA and lateral views chest. Comparison: CT of the abdomen July 07, 2016 DISCUSSION: The lungs are clear and symmetrically inflated. No pleural effusions. Enlarged cardiac silhouette with prominent pericardial fat pads. Pulmonary vasculature is normal. The skeleton is grossly intact. IMPRESSION: Mild cardiomegaly without acute abnormality. Performing Organization Address City/[facility]/Zipcode Phone Number [facility] [address] [place] [address] * Mammo Breast Screen Tomosynthesis Bilateral (09/09/2018 11:52 AM CDT) Specimen Narrative Performed At PROCEDURE: MAMMO BREAST SCREEN TOMOSYNTHESIS BILATERAL [facility] Computer aided detection was utilized for the interpretation of the digital bilateral screening mammography with tomosynthesis. HISTORY: 67-year-old female referred for screening mammography. COMPARISON: Multiple prior studies dating back to 08/03/2015 FINDINGS: The breast parenchyma is heterogeneously dense, which may obscure the detection of small masses. There are broad areas of distortion in both breasts consistent with previous breast reduction. There are no suspicious masses or clusters of calcifications. There is no significant interval change. IMPRESSION:No mammographic evidence of malignancy. RECOMMENDATION: Correlation with physical exam and annual screening mammography. BI-RADS 1: Negative NOTE: This facility is accredited by [employer] for Mammography. A negative x-ray report should not delay biopsy if a dominant or clinically suspicious mass is present. Not all cancers are identified by x-ray. [id number] Performing Organization Address City/State/Zipcode Phone Number [facility] [address] [place] [address] * Bone Density (09/09/2018 11:15 AM CDT) Specimen Narrative Performed At EXAMINATION:[facility] CLINICAL HISTORY:N95.9 Unspecified menopausal and perimenopausal disorder, MENOPAUSAL DISORDER COMPARISON:Bone density study from May 04, 2013. The results of this study expressed as bone mineral density (BMD) as follows: AP spine (L1-L4) BMD: 1.083 g/cm2 T-Score: -0.8 PREVIOUS: 4.9 % Dual Femur (Total Mean): BMD: 0.887 g/cm2 T-Score: -1.0 PREVIOUS: -2.1 % Dual femur FRAX: Risk factors: History of prior fracture 10 year probability of fracture: 1.Major osteoporotic: 18.5% 2.Hip: 3.5% Impression: Bone mineral density values as above. A copy of this scans including a report detailing these results will follow. Note: The world health organization (WHO) has classified the patient's T-score as follows: Normal=T score at or above -1.0 SD Osteopenia=T score between -1.0 and -2.5 SD Osteoporosis=T score at or below -2.5 SD [id number] Procedure Note Interface, Radiology Results Incoming - 09/09/2018 12:19 PM CDT EXAMINATION: BONE DENSITY CLINICAL HISTORY: N95.9 Unspecified menopausal and perimenopausal disorder, MENOPAUSAL DISORDER COMPARISON: Bone density study from May 04, 2013. The results of this study expressed as bone mineral density (BMD) as follows: AP spine (L1-L4) BMD: 1.083 g/cm2 T-Score: -0.8 PREVIOUS: 4.9 % Dual Femur (Total Mean): BMD: 0.887 g/cm2 T-Score: -1.0 PREVIOUS: -2.1 % Dual femur FRAX: Risk factors: History of prior fracture 10 year probability of fracture: 1. Major osteoporotic: 18.5% 2. Hip: 3.5% Impression: Bone mineral density values as above. A copy of this scans including a report detailing these results will follow. Note: The world health organization (WHO) has classified the patient's T-score as follows: Normal=T score at or above -1.0 SD Osteopenia=T score between -1.0 and -2.5 SD Osteoporosis=T score at or below -2.5 SD [id number] Performing Organization Address City/[facility] Phone Number [facility] [address] [place] [address] * Hepatic function panel (08/11/2018 2:18 PM CDT) Protein 7.0 6.1 - 8.1 g/dL [facility] Albumin, S 4.0 3.6 - 5.1 g/dL [facility] Globulin, total 3.0 1.9 - 3.7 g/dL [facility] Albumin/globuli 1.3 1.0 - 2.5 (calc) [facility] Total bilirubin 0.6 0.2 - 1.2 mg/dL [facility] Bilirubin 0.1 < OR=0.2 mg/dL [facility] Bilirubin, 0.5 0.2 - 1.2 mg/dL [facility] Alkaline 114 33 - 130 U/L [facility] AST 26 10 - 35 U/L [facility] ALT 27 6 - 29 U/L [facility] Specimen Blood Resulting Agency Comment Performing Organization Information: Site ID: [id number] Name: [facility] Address: [address] [place] [id number] Director: Maryellen Connor Performing Organization Address 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 Possible hemicrania versus occipital neuralgia COMPARISON:None TECHNIQUE: Multiplanar and multisequence MRI imaging of the brain was obtained without contrast. FINDINGS: No evidence of acute intracranial hemorrhage, mass, mass effect, acute infarct or midline shift. Few subcortical and minimal periventricular white matter T2 FLAIR hyperintensity, with mild asymmetric involvement of the left frontal lobe, likely reflecting minimal chronic microvascular ischemic changes. Ventricles and sulci are normal in appearance for age. No abnormal susceptibility. Basal cisterns are clear. Major intracranial flow voids are maintained. Status post bilateral lens extractions. No significant sinus inflammatory change. Trace fluid within a few mastoid air cells, bilaterally. IMPRESSION: 1. No acute intracranial abnormality. 2. Mild age-related changes. 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 Possible hemicrania versus occipital neuralgia COMPARISON: None TECHNIQUE: Multiplanar and multisequence MRI imaging of the brain was obtained without contrast. FINDINGS: No evidence of acute intracranial hemorrhage, mass, mass effect, acute infarct or midline shift. Few subcortical and minimal periventricular white matter T2 FLAIR hyperintensity, with mild asymmetric involvement of the left frontal lobe, likely reflecting minimal chronic microvascular ischemic changes. Ventricles and sulci are normal in appearance for age. No abnormal susceptibility. Basal cisterns are clear. Major intracranial flow voids are maintained. Status post bilateral lens extractions. No significant sinus inflammatory change. Trace fluid within a few mastoid air cells, bilaterally. IMPRESSION: 1. No acute intracranial abnormality. 2. Mild age-related changes. [id number] Performing Organization Address City/State/Zipcode Phone Number [facility] [address] [place] [address] * FL Esophagram Complete (05/17/2018 8:39 AM CDT) Specimen Narrative Performed At EXAMINATION:FL ESOPHAGRAM COMPLETE [facility] CLINICAL HISTORY:R07.0 Pain in throat, R07.0 COMPARISON:None. Fluoroscopy time: 1.2 minute. FINDINGS: The patient swallowed air producing granules and barium without difficulty. The esophagus demonstrates normal motility. No focal mucosal abnormality is identified. There is no evidence of stricture. The esophagogastric junction is unremarkable. There is mild gastroesophageal reflux. IMPRESSION: Mild gastroesophageal reflux.Otherwise, unremarkable esophagogram. [id number] Procedure Note Interface, Radiology Results Incoming - 05/17/2018 2:49 PM CDT EXAMINATION: FL ESOPHAGRAM COMPLETE CLINICAL HISTORY: R07.0 Pain in throat, R07.0 COMPARISON: None. Fluoroscopy time: 1.2 minute. FINDINGS: The patient swallowed air producing granules and barium without difficulty. The esophagus demonstrates normal motility. No focal mucosal abnormality is identified. There is no evidence of stricture. The esophagogastric junction is unremarkable. There is mild gastroesophageal reflux. IMPRESSION: Mild gastroesophageal reflux. Otherwise, unremarkable esophagogram. [id number] Performing Organization Address City/State/Zipcode Phone Number [facility] [address] [place] [address] after 05/05/2018 Insurance Type Payer Benefit Subscriber ID Effective Phone Address Plan / Dates Group TPL TPL TPL-MED-DA xxxxxxxxx 2019- TA Present Medicare MEDICARE MEDICARE xxxxxxxxxxx 2017- KATZ, PART A AND Present [place] B HMO AETNA AETNA xxxxxxxxxx 2016-P HMO,POS,EP resent O, MC/EC Leida Gardner Third Self 1950 [address] (Home) [place] [id number] Liability Advance Directives Patient has advance care planning documents on file. For more information, alex e contact: Fortino Borden [address] [place] [address]
[2019-05-06 14:30] VITALS: BP 137/67
--- NOTE | 2019-05-06 21:34 | Operative Report ---
DATE OF PROCEDURE: 05/06/2019 SURGEON: Deny Adams MD PREOPERATIVE DIAGNOSES: 1. Left ureter calculus. 2. Left hydronephrosis. 3. Bilateral small kidney stones. POSTOPERATIVE DIAGNOSES: 1. Left ureter calculus. 2. Left hydronephrosis. 3. Bilateral small kidney stones. OPERATION PERFORMED: Left ureteroscopy with stone basket removal. ANESTHESIA: General. INDICATIONS: This patient is a 68-year-old white female with a long history of kidney stones. She was seen in the emergency room on April 30, 2018, with severe left-sided renal colic. A CT was obtained, which revealed a 6 mm stone at the left ureterovesical junction causing severe left hydronephrosis. There were also some small stones in both kidneys. The patient had been started on Flomax and an attempt was made to see if she could pass the stone spontaneously, but did not. For further details, please refer to the history and physical. The procedure was done in following fashion. PROCEDURE IN DETAIL: The patient was taken to the operating room and placed under general anesthesia, dressed, draped with Hibiclens in lithotomy position in usual fashion. A preliminary scan with the C-arm showed that I could not identify the stones on the C-arm. The 25-Swazi Olympus rigid cystoscope was inserted with a 30-degree oblique lens. Clear efflux was seen from the right ureteral orifice. I could see the part of the stone right behind the opening of the left ureteral orifice and the ureteral orifice behind that area was swollen from the stone distending it. My next step was to use a 5-Swazi open-ended catheter and I passed an Amplatz Super Stiff through the catheter to bypass the stone, this then went up into the kidney and I asked for a 10-Swazi double-lumen introducer, but that was not available. Therefore, through the cystoscope, I used the 6-Swazi open-end catheter and inserted a SureGlide guidewire adjacent to the Amplatz Super Stiff using the cystoscope as well, so I now had two guidewires going up into the kidney. I then advanced the 5-Swazi open-ended catheter over the SureGlide guidewire, removed the SureGlide guidewire and obtained a retrograde pyelogram using 50% dilution of contrast media and this revealed that I was in good position. The SureGlide guidewire was then reintroduced through the 5-Swazi open-ended catheter. Once this was accomplished, I then removed the 5-Swazi open-ended catheter. Both guidewires were going up to the kidney in good position and the cystoscope withdrawn leaving both guidewires going up into the kidney. I then passed the Olympus short rigid ureteroscope over the SureGlide guidewire and came up to the ureteral orifice and the stone was just behind the ureteral orifice at this point in time. Just proximal to the ureteral orifice, the SureGlide guidewire was removed and I then passed a stone basket and the stone was engaged with the stone basket and withdrawn. The stone was passed off for stone analysis. I then used the short rigid ureteroscope to look my way back up the ureter again, followed up the ureter to make sure there was no other obstruction there and the ureter was wide open. The ureteroscope was withdrawn and then I withdrew the Amplatz Super Stiff safety guidewire. The cystoscope was reinserted and the bladder emptied and the cystoscope withdrawn. The patient tolerated the procedure well, left the operating room in good condition. My plan at this time is for to go home on Macrobid 100 mg p.o. twice daily #20. She will have return appointment to see me again in 2 weeks. Deny Adams MD SRA/MODL /[id number] cc: Patient's Chart
== END | disposition home or self-care (01) ==
LOC: OR 10:57
PROVIDERS: ATTEND Urology
DX: N13.2 Hydronephrosis with renal and ureteral calculous obstruction (principal); N35.021 Urethral stricture due to childbirth; N76.3 Subacute and chronic vulvitis; E11.9 Type 2 diabetes mellitus without complications; I10 Essential (primary) hypertension; G43.709 Chronic migraine without aura, not intractable, without status migrainosus; Z88.6 Allergy status to analgesic agent; Z88.1 Allergy status to other antibiotic agents; Z88.8 Allergy status to other drugs, medicaments and biological substances; Z01.810 Encounter for preprocedural cardiovascular examination; Z01.812 Encounter for preprocedural laboratory examination; Z01.818 Encounter for other preprocedural examination; Z79.84 Long term (current) use of oral hypoglycemic drugs; Z79.52 Long term (current) use of systemic steroids
CPT/HCPCS: 36415 ×2; 52352; 71046; 74018; 74420; 80053; 82948; 85025; 85610; 85730; 88300; 93005; C1758; J0131; J1100; J2001; J2250; J2405; J2704; Q9967